=== PATIENT | female | born 1960 | race Hispanic/Latino ===

== ENCOUNTER 2017-08-23 11:36 | Outpatient (CLI) | payer BC | END 2017-08-23 11:37 | disposition home or self-care (01) | LOC: BICRAD 11:36 | PROVIDERS: ATTEND Family Medicine | DX: M54.2 Cervicalgia (principal); M47.892 Other spondylosis, cervical region | CPT/HCPCS: 72040 ==

== ENCOUNTER 2017-12-06 14:14 | Emergency (ER) | payer BC ==
[2017-12-06] MEDS ORDERED: Lidocaine Viscous Sol 2% 15 ml UD Cup ONE (15:16)
[2017-12-06] MEDS ORDERED: Famotidine 20 MG TAB ONE (15:16)
[2017-12-06] MEDS ORDERED: Mag-Al 1200 mg/1200 mg/30 ML UDCUP ONE (15:16)
[2017-12-06 15:39] LABS: #Basophils 0.1 thou/uL (0.0-0.2); #Eosinphils 0.1 thou/uL (0.0-0.7); #Lymphocytes 2.9 thou/uL (1.20-3.40); #Monocytes 0.5 thou/uL (0.11-0.59); #Neutrophils 2.7 thou/uL (1.40-6.50); %Basophils 0.8 % (0.0-1.0); %Eosinophils 1.6 % (0.0-10.0); %Lymphocytes 46.1 % (21.0-51.0); %Monocytes 8.3 % (0.0-10.0); %Neutrophils 43.3 % (42.0-75.0); Hemoglobin 11.8 g/dL (12.0-16.0); Mean Corpuscular Hemoglobin 32.2 pg (27.0-31.0); Mean Corpuscular Volume 89.4 fl (81.0-99.0); Mean Platelet Volume 7.2 fL (7.4-10.4); Platelet Count 197 thou/uL (130-400); RBC Distribution Width 11.3 % (11.5-14.5); Red Blood Cell (RBC) Count 3.68 mill/uL (4.20-5.40); White Blood Cell (WBC) Count 6.2 thou/uL (4.8-10.8)
[2017-12-06 15:47] LABS: BHCG - Serum Negative (NEGATIVE); Pregs Control Background? CLEAR/WHITE (CLR/WHITE); Pregs Control Bar Appear? YES (CONTROL BAR)
--- NOTE | 2017-12-06 15:50 | RAD ---
RADIOGRAPH CHEST 1 VIEW: HISTORY: A 57-year-old female with epigastric pain. FINDINGS: There is cardiomegaly. There is no evidence of air space density, pulmonary edema, or pneumothorax. T he lateral costophrenic angles are sharp. IMPRESSION: 1) No acute pulmonary findings. 2) Cardiomegaly without congestive heart failure. zuri [] POS: [facility]
[2017-12-06 15:59] LABS: ALT (SGPT) 31 U/L (8-55); AST (SGOT) 22 U/L (5-34); Albumin 4.3 g/dL (3.5-5.0); Alkaline Phosphatase 65 U/L (40-150); Anion Gap 12 mmol/L (10-20); BUN (Urea Nitrogen) 14 mg/dL (9.8-20.1); Bilirubin, Total 0.3 mg/dL (0.2-1.2); Calc. Creatinine Clearance 0 mL/min (70-130); Calcium 9.4 mg/dL (7.8-10.44); Carbon Dioxide 25 mmol/L (22-29); Chloride 105 mmol/L (98-107); Estimated GFR-MDRD 83; Globulin 3.3 g/dL (2.4-3.5); Glucose 86 mg/dL (70-105); Lipase 61 U/L (8-78); Potassium 4.1 mmol/L (3.5-5.1); Protein, Total 7.6 g/dL (6.0-8.3); Sodium 138 mmol/L (136-145)
[2017-12-06 16:05] LABS: Troponin I Less than 0.010 ng/mL (< 0.028)
--- NOTE | 2018-01-01 23:25 | EKG ---
Test Reason : Blood Pressure : / mmHG Vent. Rate : 065 BPM Atrial Rate : 065 BPM P-R Int : 146 ms QRS Dur : 062 ms QT Int : 430 ms P-R-T Axes : 026 021 033 degrees QTc Int : 447 ms Normal sinus rhythm Normal ECG Confirmed by KRISTINE VÁZQUEZ, MIKE Sr ([id number]), news copy editor KRYSTIAN SPEAR ([id number]) on 01/01/2018 11:25:37 PM Referred By: Confirmed By:MIKE CARMONA MD
== END 2017-12-06 17:24 | disposition home or self-care (01) ==
LOC: ERS 14:14
DX: R07.89 Other chest pain (principal); E03.9 Hypothyroidism, unspecified; E78.5 Hyperlipidemia, unspecified; F41.9 Anxiety disorder, unspecified; F32.9 Major depressive disorder, single episode, unspecified; Z79.899 Other long term (current) drug therapy
CPT/HCPCS: 36415; 71045; 80053; 82553; 83690; 84484; 84703; 85025; 93005

== ENCOUNTER 2018-03-17 08:44 | Outpatient (CLI) | payer BC | END 2018-03-17 08:45 | disposition home or self-care (01) | LOC: BICMAMMO 08:44 | PROVIDERS: ATTEND Family Medicine | DX: Z12.31 Encounter for screening mammogram for malignant neoplasm of breast (principal) | CPT/HCPCS: 77063; 77067 ==

== ENCOUNTER 2018-10-11 09:59 | Outpatient (CLI) | payer BC ==
[2018-10-11] MEDS ORDERED: ISOVUE-370 76%-LOCM 1 ML ONE (10:01)
--- NOTE | 2018-10-11 11:19 | CT ---
CT ABDOMEN AND PELVIS WITH AND WITHOUT IV CONTRAST: History: Abdominal pain, pancreatitis. Comparison: 12-11-15 FINDINGS: Tiny nonspecific nodules at the lung bases are stable. Liver is diffusely hypodense. The pancreas has a normal appearance. No evidence of inflammation or mass. No evidence of bowel obstruction. Scattere d diverticula arise from the colon without adjacent inflammation. Horseshoe configuration of the kidney is again demonstrated with small cysts of the left kidney. No e vidence of urinary tract obstruction. Urinary bladder is unremarkable. IMPRESSION: 1. Normal CT appearance of the pancreas. 2. Horseshoe kidney. 3. Mild diverticulosis. No evidence of diverticulitis. POS: [facility]
== END 2018-10-11 10:00 | disposition home or self-care (01) ==
LOC: BICCT 09:59
PROVIDERS: ATTEND Family Medicine
DX: R10.9 Unspecified abdominal pain (principal); K57.90 Diverticulosis of intestine, part unspecified, without perforation or abscess without bleeding; Q63.1 Lobulated, fused and horseshoe kidney
CPT/HCPCS: 74178; Q9966

== ENCOUNTER 2019-05-08 15:10 | Outpatient (CLI) | payer BC ==
--- NOTE | 2019-05-08 16:27 | ULT ---
EXAM: Carotid Doppler PROVIDED CLINICAL HISTORY: Hyperlipidemia COMPARISON: None FINDINGS: Grayscale and color Doppler sonography with spectral analysis was performed of the extracranial carot id system bilaterally. There is no evidence for a hemodynamically significant internal carotid artery stenosis by peak systolic velocity or ratio criteria. Antegrade flow is seen in the vertebral arteries. IMPRESSION: No sonographic evidence for a hemodynamically significant internal carotid artery stenosis.
== END 2019-05-08 15:11 | disposition home or self-care (01) ==
LOC: BICULT 15:10
PROVIDERS: ATTEND Family Medicine
DX: E78.2 Mixed hyperlipidemia (principal)
CPT/HCPCS: 93880

== ENCOUNTER 2020-03-08 05:16 | Outpatient (CLI) | payer BC, OTHER ==
[2020-03-08 12:00] LABS: Anion Gap 11 mmol/L (10-20); BUN (Urea Nitrogen) 13 mg/dL (9.8-20.1); Calc. Creatinine Clearance 0 mL/min (70-130); Calcium 9.2 mg/dL (7.8-10.44); Carbon Dioxide 27 mmol/L (22-29); Chloride 106 mmol/L (98-107); Estimated GFR-MDRD 76; Glucose 92 mg/dL (70-105); Potassium 3.9 mmol/L (3.5-5.1); Sodium 140 mmol/L (136-145)
[2020-03-08 12:02] LABS: Band 1 % (5-11); Eosinophils 3 % (0-10); Hemoglobin 12.5 g/dL (12.0-16.0); Lymphocytes 48 % (21-51); MDiff Complete? YES; Mean Corpuscular HGB CONC 33.5 g/dL (32.0-36.0); Mean Corpuscular Hemoglobin 31.3 pg (27.0-31.0); Mean Corpuscular Volume 93.4 fL (78.0-98.0); Mean Platelet Volume 8.3 fL (7.4-10.4); Monocytes 9 % (0-10); Neutrophil 39 % (42-75); Platelet Count 173 thou/uL (130-400); Platelet Morphology Comment Appears Adequate; RBC Distribution Width 11.6 % (11.5-14.5); RBC Morphology Normal; Red Blood Cell (RBC) Count 4.01 mill/uL (4.20-5.40)
[2020-03-08 17:19] LABS: SARS-CoV-2 MS2 Positive; SARS-CoV-2 N Gene Negative; SARS-CoV-2 S Gene Negative; SARS-CoV-2 by NAA Not Detected (NotDetected); SARS-CoV-2 orf1ab Negative
== END 2020-03-08 05:17 | disposition home or self-care (01) ==
LOC: LABBT 05:16
PROVIDERS: ATTEND Orthopaedic Surgery
DX: Z01.818 Encounter for other preprocedural examination (principal); Z11.59 Encounter for screening for other viral diseases; M65.311 Trigger thumb, right thumb
CPT/HCPCS: 80048; 85025; 87635; 93005; 93010; U0003

== ENCOUNTER 2020-03-13 09:40 | Day surgery (SDC) | payer BC ==
[2020-03-06 09:58] VITALS: BMI 29.0
--- NOTE | 2020-03-13 06:01 | HP ---
HISTORY OF PRESENT ILLNESS: The patient is a 59-year-old female with a several month history of pain and triggering in the right thumb. She obtained relief from a previous injection, but developed recurrence despite rest, restriction of activities, and anti-inflammatory medications. 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 PAST MEDICAL HISTORY: The patient is otherwise in good health. She has a history of diverticulosis, migraine headaches, high cholesterol, and allergies. CURRENT MEDICATIONS: Include Vascepa, [place] fats, rosuvastatin, fenofibrate. ALLERGIES: SHE IS ALLERGIC TO ADVIL, MOTRIN, MELOXICAM, AND ASPIRIN WHICH CAUSED ANAPHYLAXIS. FAMILY HISTORY: Otherwise unremarkable. SOCIAL HISTORY: Otherwise unremarkable. REVIEW OF SYSTEMS: Otherwise unremarkable. PHYSICAL EXAMINATION: GENERAL: Reveals a healthy female. HEENT: Unremarkable. NECK: Supple. CHEST: Clear. HEART: Regular rate and rhythm. ABDOMEN: Soft, nontender. PELVIC: Deferred. RECTAL: Deferred. BREAST: Deferred. EXTREMITIES: Pertinent findings with the right thumb, there is tenderness and a mass over the A1 lorena. There is triggering with range of motion. All tendons are intact. Neurovascular exam is intact. IMPRESSION: Right trigger thumb. PLAN: Right trigger thumb release. The nature of the surgery, length of recovery, and potential complications such as infection, loss of motion, incomplete relief, digital nerve injury, recurrence, and need for additional treatment and repeat surgery have been discussed in detail. Job ID: [id number]
[2020-03-13] MEDS ORDERED: Famotidine/PF 20 mg/2ml Vial ONE (10:44)
[2020-03-13] MEDS ORDERED: Propofol 500 MG/50 ML VIAL ONE (10:44)
[2020-03-13] MEDS ORDERED: Scopolamine 1.5 mg/72 hour Patch ONE (10:59)
[2020-03-13] MEDS ORDERED: Lidocaine 1% (PF) 30 ML VIAL ONE (10:59)
[2020-03-13] MEDS ORDERED: Lidocaine 1% PF 5 ML VIAL ONE (11:49)
[2020-03-13] MEDS ORDERED: Ondansetron PF 4 MG/2 ML Vial ONE (11:49)
[2020-03-13] MEDS ORDERED: Metoclopramide HCl 10 MG/2 ML VIAL ONE (11:49)
[2020-03-13] MEDS ORDERED: PROPOFOL 200 MG/20 ML VIAL ONE (11:49)
[2020-03-13] MEDS ORDERED: Fentanyl 100 MCG/2 ML VIAL ONE (11:50)
--- NOTE | 2020-03-13 13:18 | OP ---
DATE OF PROCEDURE: 03/13/2020 ANESTHESIA: Local plus TIVA. PREOPERATIVE DIAGNOSIS: Right trigger thumb. POSTOPERATIVE DIAGNOSIS: Right trigger thumb. PROCEDURE PERFORMED: Right trigger thumb release. DESCRIPTION OF PROCEDURE: After satisfactory anesthesia was induced in the supine position, the patient was prepped and draped in routine manner. Metacarpal block was accomplished with 1% plain lidocaine 10 mL. The arm was elevated, exsanguinated with Esmarch bandage, and tourniquet inflated to 250 mmHg. A 2 cm transverse incision was made over the proximal edge of the A1 lorena of the right thumb, carried down through subcutaneous tissues. Bleeding points were controlled with Bovie cautery. Care was taken to avoid injury to the neurovascular bundles, which were retracted and protected throughout the procedure. The proximal edge of the A1 lorena was identified and divided in the proximal distal direction with small scissors, completely releasing the tunnel. The flexor tendon could then be pulled into the wound. There was full range of motion, no triggering. The patient was awakened and asked to flex and extend her thumb and she could flex it without any further triggering. The wound was thoroughly irrigated and closed with interrupted 3-0 nylon. A sterile bulky compressive dressing was applied. The tourniquet deflated and the hand promptly pinked up, and she was awakened, taken from the operating room in stable condition. There were no apparent intraoperative complications. The estimated blood loss was negligible. The patient will be discharged home in satisfactory condition, instructed on ice and elevation, given written wound care instructions. She has [place] 5 at home for pain. She will be rechecked in my office in approximately 10 to 14 days or sooner if there are any problems prior to that time. Job ID: [id number]
== END 2020-03-13 13:35 | disposition home or self-care (01) ==
LOC: SDC 09:40
PROVIDERS: ATTEND Orthopaedic Surgery
PROC: 0LN70ZZ Release Right Hand Tendon, Open Approach (ICD-10-PCS; principal; 2020-03-13)
DX: M65.311 Trigger thumb, right thumb (principal); E78.00 Pure hypercholesterolemia, unspecified; Z79.899 Other long term (current) drug therapy; Z88.6 Allergy status to analgesic agent; Z88.8 Allergy status to other drugs, medicaments and biological substances; Z91.018 Allergy to other foods
CPT/HCPCS: J0690; J2001; J2405; J2704; J2765; J3010; S0028

== ENCOUNTER 2021-11-07 15:25 | Outpatient (CLI) | payer BC | END 2021-11-07 15:26 | disposition home or self-care (01) | LOC: BICMAMMO 15:25 | PROVIDERS: ATTEND Family Medicine | DX: Z12.31 Encounter for screening mammogram for malignant neoplasm of breast (principal) | CPT/HCPCS: 77063; 77067 ==

== ENCOUNTER 2022-02-17 13:52 | Outpatient (CLI) | payer BC | END 2022-02-17 13:53 | disposition home or self-care (01) | LOC: BICRAD 13:52 | PROVIDERS: ATTEND Family Medicine | DX: R05.9 Cough, unspecified (principal); M54.2 Cervicalgia; M47.812 Spondylosis without myelopathy or radiculopathy, cervical region | CPT/HCPCS: 71046; 72040 ==

== ENCOUNTER 2022-09-07 08:33 | Outpatient (CLI) | payer BC ==
[2022-09-07] MEDS ORDERED: Iopamidol 370 76% 100 ML VIAL ONE (12:57)
== END 2022-09-07 08:34 | disposition home or self-care (01) ==
LOC: CT 08:33
PROVIDERS: ATTEND Family Medicine
DX: G44.89 Other headache syndrome (principal)
CPT/HCPCS: 70470; 82565

== ENCOUNTER 2023-07-30 11:09 | Outpatient (CLI) | payer BC | END 2023-07-30 11:10 | disposition home or self-care (01) | LOC: BICMAMMO 11:09 | PROVIDERS: ATTEND Family Medicine | DX: Z12.31 Encounter for screening mammogram for malignant neoplasm of breast (principal) | CPT/HCPCS: 77063; 77067 ==

== ENCOUNTER 2024-09-07 15:20 | Outpatient (CLI) | payer BC | END 2024-09-07 15:21 | disposition home or self-care (01) | LOC: BICMAMMO 15:20 | PROVIDERS: ATTEND Family Medicine | DX: Z12.31 Encounter for screening mammogram for malignant neoplasm of breast (principal) | CPT/HCPCS: 77063; 77067 ==